=== PATIENT | female | born 1985 | race Caucasian/White ===

== ENCOUNTER 2016-10-23 12:53 | Outpatient (CLI) | payer OTHER ==
--- NOTE | 2016-10-23 16:49 | DIAGNOSTIC IMAGING REPORT ---
PROCEDURE: US OB DETAILED ANATOMIC INDICATION: ANATOMY TECHNIQUE: [place] scale, color, and spectral Doppler images of the second trimester gravid uterus were obtained. COMPARISON: None. FINDINGS: A single living intrauterine is in vertex presentation. There is regular cardiac activity at a rate of 138 beats per minute. The placenta is anterior and away from the internal cervical os. The cervix is closed measuring approximately 4.1 in length. The amniotic fluid volume is subjectively normal. Biparietal diameter 4.7 cm at 20 weeks and 2-day Head circumference 17.8 cm at 20 weeks and 2-day Abdominal circumference 15.6 cm at 20 weeks and 5-day Femur length 3.5 cm at 21 weeks and 0 days Estimated weight 376 g Composite gestational age 20 weeks and 4 days, [place] 03/08/2017 There was visualization of a number of normal structures including the intracranial contents, facial features, nuchal region, spine, four-chamber heart and outflow tracts to the extent that could be visualized, diaphragm, fluid-filled stomach, kidneys, abdomen, urinary bladder, upper and lower extremities, and genitals. A three-vessel umbilical cord, normal and placental cord insertion sites were seen. IMPRESSION: 1. Single living intrauterine with a composite gestational age of 20 weeks and 4 days, [place] 03/08/2017 2. Symmetric and normal anatomy.
== END 2016-10-23 23:00 | disposition home or self-care (01) ==
LOC: US SRH 12:53
DX: Z34.92 Encounter for supervision of normal pregnancy, unspecified, second trimester (principal); Z3A.20 20 weeks gestation of pregnancy

== ENCOUNTER 2016-12-08 09:17 | Outpatient (CLI) | payer OTHER | END 2016-12-08 23:00 | LOC: LAB SRH 09:17 | DX: Z34.82 Encounter for supervision of other normal pregnancy, second trimester (principal) | CPT/HCPCS: 90039; 90074; 91162; 91163 ==